=== PATIENT | female | born 1940 | race Caucasian/White ===

== ENCOUNTER 2020-12-23 13:10 | Emergency (ER) | payer MEDICARE, OTHER ==
[~2020-12-23] VITALS: Ht 165.1 cm; Wt 68.0 kg
[2020-12-23] MEDS ORDERED: LEVOTHYROXINE200 MCG PO (14:13)
[2020-12-23] MEDS ORDERED: DECADRON6 MG PO (18:53)
== END 2020-12-23 19:21 | disposition home or self-care (01) ==
LOC: ED 13:10
DX: U07.1 COVID-19 (principal); J12.82 Pneumonia due to coronavirus disease 2019; E03.9 Hypothyroidism, unspecified; Z79.899 Other long term (current) drug therapy
CPT/HCPCS: 71045; 80053; 85025; 96374; 96375; 99283-25; C9803; J1100; J1885; J2405; J7030; U0003

== ENCOUNTER 2023-09-24 08:26 | Emergency (ER) | payer MEDICARE, OTHER ==
[~2023-09-24] VITALS: Ht 165.1 cm; Wt 109.5 kg
[~2023-09-24 08:26] MED LIST: DECADRON6 MG PO; LEVOTHYROXINE200 MCG PO
[2023-09-24 08:46] LABS: BASOPHILS 0.6 % (0-2); EOSINOPHILS 1.3 % (0-6); HEMATOCRIT 41.8 % (35.0-50.0); HEMOGLOBIN 14.2 g/dL (12.0-18.0); LYMPHOCYTES 12.4 % (24-44); MCH 30.9 (27-36); MCV 90.9 fl (81-99); MONOCYTES 6.3 % (0-12); NEUTROPHILS 79.4 % (39-80); PLATELET COUNT 153 K/uL (140-440); RDW 14.9 (10.5-15.0)
[2023-09-24 09:02] LABS: ALBUMIN 3.7 g/dL (3.4-5.0); ALBUMIN/GLOBULIN RATIO 0.93 (1.1-2.4); ANION GAP 14.2 (7-21); BILIRUBIN, TOTAL 1.1 ng/dL (0.2-1.0); BUN/CREATININE RATIO 18.86 (6.0-28.6); CALCIUM 8.9 mg/dL (8.5-10.1); CREATININE, SERUM 1.06 mg/dL (0.55-1.02); MAGNESIUM 2.2 mg/dL (1.8-2.4); POTASSIUM 4.2 mmol/L (3.5-5.1); PROTEIN, TOTAL 7.7 g/dL (6.4-8.2)
[2023-09-24] MEDS ORDERED: ASPIRIN 81 MG CHEW PO ONE (09:30)
[2023-09-24] MEDS ORDERED: HEParin SOD (PORCINE) 5,000 UNIT/ML VIAL IV ONE (09:30)
[2023-09-24] MEDS ORDERED: HEPARIN SOD,PORK IN 0.45% NACL 500 ML IV SCH (09:30)
[2023-09-24 09:31] LABS: INR 0.98 (0.80-1.30); PROTIME 12.6 Sec (11.2-14.2)
[2023-09-24 09:33] LABS: PARTIAL THROMBOPLASTIN TIME 24.3 Sec (22.9-41.3)
[2023-09-24] MEDS ORDERED: CLOPIDOGREL BISULFATE 75 MG TAB PO ONE (10:45)
[2023-09-24] MEDS ORDERED: CLOPIDOGREL BISULFATE 75 MG TAB ONE (10:48)
[2023-09-24 12:40] VITALS: BP 175/88
--- NOTE | 2023-09-24 21:32 | EKG ---
[facility] [address] [place] [address] Signed Normal sinus rhythm Left anterior fascicular block Abnormal ECG No previous ECGs available Confirmed by Shraon Pineda MD () on 09/24/2023 9:33:24 PM Electronically Signed By: SHARON PINEDA MD 09/24/232131 PATIENT NAME: RACHEL FLORES Electrocardiogram DATE OF : 44 PHYSICIAN: SHARON PINEDA MD REPORT #: [id number] REPORT IS CONFIDENTIAL AND NOT TO BE RELEASED WITHOUT AUTHORIZATION
== END 2023-09-24 12:46 | disposition short-term general hospital (02) ==
LOC: ED 08:26
PROVIDERS: Emergency Medicine
DX: I21.4 Non-ST elevation (NSTEMI) myocardial infarction (principal); E03.9 Hypothyroidism, unspecified; Z79.52 Long term (current) use of systemic steroids; Z79.890 Hormone replacement therapy
CPT/HCPCS: 36415; 71045; 80053; 83735; 84484; 85025; 85610; 85730; 93005; 93010; 96374; 99285-25; A9270; J1644